=== PATIENT | male | born 1975 | race Caucasian/White ===

== ENCOUNTER → 2018-04-06 | Outpatient (CLI) | payer BC ==
[~2018-04-06] MED LIST: ACHD5005 PO; CYCL10TA9 PO; PRD20T PO
--- NOTE | 2018-04-06 10:19 | Diagnostic Imaging Report ---
PROCEDURE: MRI lumbar spine. TECHNIQUE: Multiplanar, multisequence MRI of the lumbar spine was performed without contrast. INDICATION: Low back pain and low back injury. Comparison is made with prior MRI from 01/08/2016. Curvature and alignment of the lumbar spine appears stable. Vertebral body heights are maintained. The marrow signal intensity is unremarkable. No geographic marrow lesion or acute compression fracture is identified. There is some degenerative disc disease with desiccation and mild disc space narrowing noted L3-4, L4-5 and L5-S1 levels. The conus is unremarkable at the T12-L1 level. T12-L1: No central canal or neuroforaminal stenosis is identified. L1-2: Unremarkable. L2-3: Unremarkable. L3-4: There is annular bulging which flattens the ventral thecal sac. Central canal remains patent. There is narrowing of bilateral lateral recesses. Very mild narrowing of the neural foramina bilaterally is also seen. L4-5: Annular bulging is seen flattening the ventral thecal sac. Central canal remains widely patent. There is bilateral lateral recess stenosis. No significant neural foraminal stenosis is seen. L5-S1: Broad-based disc bulging as well as wide-based midline disc bulge indents ventral thecal sac, similar to prior study. No significant central canal narrowing is seen. There is significant bilateral lateral recess stenosis and moderate right and minimal left neural foraminal stenosis, similar to prior exam. Paraspinous tissues are unremarkable. IMPRESSION: Lower lumbar degenerative disc and facet disease, similar to the MRI from December 2015. No central canal stenosis is seen. There is multilevel lateral recess and neural foraminal narrowing described level by level above. Dictated by: Dictated on workstation # [id number]
== END ==
LOC: RAD 09:12
PROVIDERS: ATTEND Nurse Practitioner Family
DX: M51.27 Other intervertebral disc displacement, lumbosacral region (principal); M51.37 Other intervertebral disc degeneration, lumbosacral region; M99.73 Connective tissue and disc stenosis of intervertebral foramina of lumbar region
CPT/HCPCS: 72148